=== PATIENT | male | born 1980 | race Caucasian/White ===

== ENCOUNTER 2022-09-15 18:13 | Emergency (ER) | payer OTHER, SELFPAY ==
[2022-09-15 18:15] VITALS: BP 138/83; PULSE 68; RESP 14; TEMP 36.6; O2SAT 100; BMI 24.3
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
[2022-09-15] MEDS: Oxycodone/Apap 5/325 Tablet PO ×2 (18:48→22:51)
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
[2022-09-15 19:14] VITALS: BP 140/106; PULSE 69; RESP 16; O2SAT 99
--- NOTE | 2022-09-15 19:49 | CT_ITS ---
CT RIGHT LOWER EXTREMITY WITH 3-D IMAGING CLINICAL INDICATION: Penetrating trauma TECHNIQUE: Axial CT images of the RIGHT lower extremity was performed without IV contrast material. Coronal and sagittal reformats were provided. RADIATION DOSAGE (If Supplied By Facility): CTDIvol = ( 15.35 ) mGy, DLP = ( 480.41 ) mGycm COMPARISON: X-ray earlier today FINDINGS: Bones: Acute comminuted distracted fracture of the medial and plantar aspect of the calcaneus with multiple small surrounding fracture fragments. 1.5 cm os trigonum. Tiny os perineum. There is irregularity of the articular surface of the talar dome with multiple surrounding small fracture fragment which may be secondary to recent tibiotalar joint dislocation. Soft Tissues: The deep soft tissue structures are unremarkable. There is a 3 cm open laceration of the medial soft tissues of the ankle extending deep to the superficial cortex of the medial malleolus the tibia. Within the deep portion the laceration there are multiple small calcific densities worrisome for fracture fragments. These may less likely represent radiopaque foreign bodies. There are small bubbles of subcutaneous emphysema throughout the soft tissues surrounding the ankle joint including medially, anteriorly, posteriorly, and laterally. This may be secondary to penetrating trauma but the only laceration is seen medially or ankle dislocation. CT/Extremity Lower without Contra IMPRESSION: 1. Comminuted distracted oblique fracture of the medial and plantar calcaneus. 2. Large open laceration the medial aspect of the ankle with multiple adjacent calcific opacities worrisome for bone fragments or less likely foreign bodies. 3. Suspect tibiotalar joint dislocation with small fracture fragments of the talar dome and circumferential subcutaneous emphysema. N.B. : The above Results were Read Back by Gareth Miranda MD to Corky Devi and understanding confirmed on 09/15/2022 22:23:10 (ET). Electronically Signed: Gareth Miranda MD at 22:24 EDT ,
[2022-09-15] MEDS: Cefazolin 1 GM/50 ML BAG IV (19:58)
[2022-09-15 20:00] VITALS: BP 126/83; PULSE 55; RESP 16; O2SAT 99
[2022-09-15 21:04] VITALS: BP 130/76; PULSE 63; RESP 16; TEMP 36.9; O2SAT 97
[2022-09-15] MEDS: Lidocaine 1% (20 ml mdv) 20 ML Vial 5 ML INFILT (21:23)
[2022-09-15 22:00] VITALS: BP 127/74; PULSE 71; RESP 16; O2SAT 99
[2022-09-15 23:06] VITALS: BP 137/81; PULSE 78; RESP 16; TEMP 37.1; O2SAT 99
== END 2022-09-15 23:18 | disposition home or self-care (01) ==
PROVIDERS: Emergency Provider Emergency Medicine; Visit Provider Emergency Medicine
DX: S91.011A Laceration without foreign body, right ankle, initial encounter (principal); F17.210 Nicotine dependence, cigarettes, uncomplicated; F17.290 Nicotine dependence, other tobacco product, uncomplicated; S92.001A Unspecified fracture of right calcaneus, initial encounter for closed fracture; S92.534A Nondisplaced fracture of distal phalanx of right lesser toe(s), initial encounter for closed fracture; V86.55XA Driver of 3- or 4- wheeled all-terrain vehicle (ATV) injured in nontraffic accident, initial encounter
CPT/HCPCS: 12001; 29515; 73610; 73630; 73700; 96365; 99285